=== PATIENT | female | born 1995 | race Caucasian/White ===

== ENCOUNTER 2017-05-28 15:52 | Emergency (ER) | payer OTHER ==
[~2017-05-28] VITALS: Ht 167.6 cm; Wt 72.6 kg
[2017-05-28 16:11] VITALS: Ht 167.6 cm; Wt 72.6 kg
[2017-05-28 17:17] LABS: BASOPHIL % 0.7 % (0-2); PLATELET COUNT 239 x10^3mcL (130-400)
[2017-05-28 17:23] LABS: CALCIUM 8.6 mg/dL (8.5-10.1); CARBON DIOXIDE 28.2 mmol/L (21-32); CHLORIDE SERUM 105 mmol/L (98-107); CREATININE SERUM 0.7 mg/dL (0.6-1.0); GFR1 > 60 mL/min; GLUCOSE SERUM 93 mg/dL (74-106); POTASSIUM SERUM 3.7 mmol/L (3.5-5.1); SODIUM SERUM 143 mmol/L (136-145)
[2017-05-28 17:28] LABS: ALBUMIN 3.5 g/dL (3.4-5.0); ALKALINE PHOSPHATASE 70 U/L (46-116); ALT/SGPT 28 U/L (14-59); AST/SGOT 19 U/L (15-37); BILIRUBIN TOTAL 0.18 mg/dL (0.20-1.00); LIPASE 317 IU/L (73-393); TOTAL PROTEIN, SERUM 6.8 g/dL (6.4-8.2)
[2017-05-28 18:53] VITALS: BP 106/68
== END 2017-05-28 18:53 | disposition home or self-care (01) ==
LOC: ED 15:52
PROVIDERS: Emergency Medicine Emergency Medical Services
DX: K80.00 Calculus of gallbladder with acute cholecystitis without obstruction (principal)
CPT/HCPCS: J2270; J2274; J2405; J7030; Q0092

== ENCOUNTER 2017-07-16 15:38 | Emergency (ER) | payer SELFPAY ==
[~2017-07-16] VITALS: Ht 167.6 cm; Wt 84.4 kg
[2017-07-16 15:55] VITALS: BP 133/54; Ht 167.6 cm; Wt 84.4 kg
== END 2017-07-16 16:51 | disposition home or self-care (01) ==
LOC: ED 15:38
DX: K80.50 Calculus of bile duct without cholangitis or cholecystitis without obstruction (principal)